=== PATIENT | male | born 1960 | race Caucasian/White ===

== ENCOUNTER 2018-08-24 16:45 | Inpatient (IN) ==
[2018-08-24] MEDS ORDERED: Sod Chloride 0.9% Inj 1,000 ML IV.SIG ONE (16:52)
[2018-08-24] MEDS ORDERED: Morphine Inj 4 MG/ML Vial IV.PUSH ONE (16:52)
--- NOTE | 2018-08-24 16:58 | ED ---
HPI General Chief Complaint: Abdominal Pain Stated Complaint: abd pain/evac Time Seen by Provider: 08/24/18 16:52 Source: patient and EMS Mode of arrival: EMS Limitations: no limitations History of Present Illness HPI narrative: 58-year-old male with PMH of non-Hodgkin's lymphoma, HIV, fibromyalgia presents the ED via EMS for evaluation of 2-day history of diffuse abdominal pain, nausea, vomiting and diarrhea. The patient endorses chills but has not measured a fever at home. He states that the abdominal pain is 6/10, diffuse, no alleviating or exacerbating factors reported. Onset was gradual around 2 AM 2 nights ago. Patient complains of bloated sensation and distention. He endorses loose stools x 2 days. The patient denies chest pain, palpitations, shortness of breath, dysuria, hematuria. He denies hematemesis, melena, hematochezia. He denies chronic alcohol use. He states that he last had a drink "about a week ago." He endorses history of laparoscopic appendectomy. Patient states his last CD4 count and viral load were tested a few months ago. He states that the viral load was undetectable but he does not do not know his CD4 count. He states "I have a terrible memory and I can't remember my medications either." Related Data Home Medications Medication Instructions Recorded Confirmed acyclovir 400 mg PO Q4H 08/24/18 08/24/18 dolutegravir-rilpivirine [Juluca] 1 tab PO DAILY 08/24/18 08/24/18 lamotrigine 100 mg PO BID 08/24/18 08/24/18 quetiapine 100 mg PO TID 08/24/18 08/24/18 tamsulosin 0.4 mg PO DAILY 08/24/18 08/24/18 zolpidem [Ambien] 08/24/18 Allergies Allergy/AdvReac Type Severity Reaction Status Date / Time No Known Allergies Allergy Verified 08/24/18 16:50 Review of Systems ROS: all other systems reviewed are negative [facility] Medical History Medical History Fibromyalgia (Acute) HIV positive (Acute) Non-Hodgkin lymphoma (Acute) Surgical History Surgical History H/O bone marrow transplant (Acute) Social History Social History Substance History: Active Abuse Smoking Status: Former smoker How Often Do You Have a Drink Containing Alcohol: 2 to 4 times a month Recent Travel in [facility] within the Last 8 Weeks: No Recent Out of Country Travel within the Last 8 Weeks: No Exam Narrative Exam Narrative: GENERAL: Well-nourished, well-developed, nontoxic-appearing white male in no acute distress. SKIN: Focused skin assessment pale, warm/dry. HEAD: Atraumatic. Normocephalic. EYES: Pupils equal and round. No scleral icterus. No injection or drainage. ENT: No nasal bleeding or discharge. Mucous membranes pink and moist. NECK: Trachea midline. No JVD. CARDIOVASCULAR: Regular rate and rhythm. No murmur appreciated. RESPIRATORY: No accessory muscle use. Clear to auscultation. Breath sounds equal bilaterally. GASTROINTESTINAL: Abdomen soft, mildly distended, diffusely tender, worse in left upper quadrant. Hypoactive bowel sounds. Hepatic and splenic margins not palpable. MUSCULOSKELETAL: No obvious deformities. No clubbing. No cyanosis. No edema. NEUROLOGICAL: Awake and alert. No obvious cranial nerve deficits. Motor grossly within normal limits. Normal speech. PSYCHIATRIC: Appropriate mood and affect; insight and judgment normal. Course Reevaluation(s) Reevaluation #1: Patient returned from the CT scanner moaning loudly. He states "my pain is back." Pain is reportedly in the epigastric region. Patient with voluntary guarding on reexamination. No tympany. Time: 18:23 Initial Documented Vital Signs Temperature 97.6 F 08/24/18 16:50 Pulse Rate 80 08/24/18 16:50 Respiratory Rate 16 08/24/18 16:50 Blood Pressure 141/67 H 08/24/18 16:50 Pulse Oximetry 92 L 08/24/18 16:50 Last Documented Vital Signs Temperature 97.6 F 08/24/18 16:50 Pulse Rate 85 08/24/18 18:42 Respiratory Rate 17 08/24/18 18:40 Blood Pressure 147/87 H 08/24/18 18:40 Pulse Oximetry 97 08/24/18 18:40 Medical Decision Making ALMA Attestation ALMA supervised visit: Yes Attestation: I, Dr. Frost, have reviewed the advance practice practitioner' s documentation and am in agreement, met with the patient face to face, made the diagnosis, and the medical decision making was done by me. *My assessment and Findings: The patient is a 58-year-old male who presents the emergency department with several days of abdominal pain and distention. The patient states they recently change his HIV medications, he states that that caused a disturbance in his bowel movements. However, the last several days he is only had watery type bowel movements, has not had a normal bowel movement in several days. He has been passing gas intermittently. He does noted that his abdomen is distended, painful, but denies any previous history of chronic ileus or small bowel obstruction. The patient has had a previous laparoscopic appendectomy, but denies any other abdominal surgeries. The patient is followed by infectious disease doctor for his HIV as well as a primary physician, however, cannot recall their name upon interview. The patient did have significant pain upon evaluation, was administered pain medications. CT the abdomen and pelvis reveals a partial small bowel obstruction. I had a discussion with the patient regarding NG tube placement, he was agreeable. The patient will be admitted to the on-call medical service. MDM Narrative Medical decision making narrative: 58-year-old male with PMH of HIV, upper scopic appendectomy resents the ED for evaluation of 3-day history of abdominal pain, bloating, watery stools. Patient is afebrile on presentation. On physical exam the abdomen is bloated, mildly distended, non-tympanic. IV was established. Patient was administered 4 mg morphine, 4 mg Zofran and 1 L normal saline. CBC shows white count 11.7, hemoglobin 13.6. CMP BUN 15, creatinine 1.07. LFTs normal. Lactic acid 1.7. While awaiting CT exam the patient started to moan. Reexamination reveals mild worsening of the distention and some voluntary guarding. He was administered a milligram of Dilaudid. CT abdomen pelvis reveals partial small bowel obstruction with transition point likely at the distal ileum in the right lower quadrant. Trace perihepatic fluid. No evidence for perforation or infarction. Dr. Frost spoke with the patient who is agreeable to an NG tube. This was placed. Plan to admit for observation. Patient is agreeable. I spoke with Dr.Mazal who agrees to accept the patient to the medicine service. Please see medicine notes for disposition. Medical Screen Exam Complete: Yes Emergency Medical Condition: Yes Differential Diagnosis Differential Diagnosis: Gastroenteritis versus cholecystitis versus pancreatitis versus ileus versus ileus versus bowel obstruction versus metabolic derangement versus anemia versus other Lab Data Result diagrams: 08/24/18 17:00 08/24/18 17:00 Lab Results 08/24/18 08/24/18 08/24/18 Range/Units 17:00 17:00 18:45 WBC 11.7 H (4.0-11.0) th/mm3 RBC 3.80 L (4.50-5.90) mil/mm3 Hgb 13.6 (13.0-17.0) gm/dL Hct 39.0 (39.0-51.0) % MCV 102.5 H (80.0-100.0) fL MCH 35.7 H (27.0-34.0) pg MCHC 34.9 (32.0-36.0) % RDW 13.4 (11.6-17.2) % Plt Count 196 (150-450) th/mm3 MPV 6.9 L (7.0-11.0) fL Neut % (Auto) 78.3 H (16.0-70.0) % Lymph % (Auto) 13.6 (9.0-44.0) % [place] % (Auto) 7.7 (0.0-8.0) % Eos % (Auto) 0.1 (0.0-4.0) % Baso % (Auto) 0.3 (0.0-2.0) % Neut # (Auto) 9.1 H (1.8-7.7) th/mm3 Lymph # (Auto) 1.6 (1.0-4.8) th/mm3 [place] # (Auto) 0.9 (0.0-0.9) th/mm3 Eos # (Auto) 0.0 (0.0-0.4) th/mm3 Baso # (Auto) 0.0 (0.0-0.2) th/mm3 WBC Differential . Differential Comment Auto diff final Sodium 140 (136-145) meq/L Potassium 4.1 (3.5-5.1) meq/L Chloride 106 (98-107) meq/L Carbon Dioxide 25.5 (21.0-32.0) meq/L Anion Gap 9 (5-15) meq/L BUN 15 (7-18) mg/dL Creatinine 1.07 (0.60-1.30) mg/dL Estimated GFR 70 L (>89) mL/min Random Glucose 134 H (74-106) mg/dL Lactic Acid 1.7 (0.4-2.0) mmol/L Calcium 8.5 (8.5-10.1) mg/dL Magnesium 2.2 (1.5-2.5) mg/dL Total Bilirubin 0.8 (0.2-1.0) mg/dL AST 22 (15-37) U/L ALT 32 (12-78) U/L Alkaline Phosphatase 39 L (45-117) U/L Total Protein 6.1 L (6.4-8.2) g/dL Albumin 3.9 (3.4-5.0) g/dL Lipase 215 (73-393) U/L Urine Color (Yellw/Straw) Urine Clarity (Clear) Urine pH (5.0-8.5) Ur Specific [place] (1.002-1.035) Urine Protein (Neg-Trace) mg/dL Urine Glucose (UA) (Negative) mg/dL Urine Ketones (Negative) mg/dL Urine Occult Blood (Negative) Urine Nitrate (Negative) Urine Bilirubin (Negative) Urine Urobilinogen (Less than 2) mg/dL Ur Leukocyte Esterase (Negative) Hyaline Casts (0-3) /lpf Urine Mucus (Occasional) /lpf Micro UA Comment Ur Microscopic Review Urine Culture Comments 08/24/18 Range/Units 20:30 WBC (4.0-11.0) th/mm3 RBC (4.50-5.90) mil/mm3 Hgb (13.0-17.0) gm/dL Hct (39.0-51.0) % MCV (80.0-100.0) fL MCH (27.0-34.0) pg MCHC (32.0-36.0) % RDW (11.6-17.2) % Plt Count (150-450) th/mm3 MPV (7.0-11.0) fL Neut % (Auto) (16.0-70.0) % Lymph % (Auto) (9.0-44.0) % [place] % (Auto) (0.0-8.0) % Eos % (Auto) (0.0-4.0) % Baso % (Auto) (0.0-2.0) % Neut # (Auto) (1.8-7.7) th/mm3 Lymph # (Auto) (1.0-4.8) th/mm3 [place] # (Auto) (0.0-0.9) th/mm3 Eos # (Auto) (0.0-0.4) th/mm3 Baso # (Auto) (0.0-0.2) th/mm3 WBC Differential Differential Comment Sodium (136-145) meq/L Potassium (3.5-5.1) meq/L Chloride (98-107) meq/L Carbon Dioxide (21.0-32.0) meq/L Anion Gap (5-15) meq/L BUN (7-18) mg/dL Creatinine (0.60-1.30) mg/dL Estimated GFR (>89) mL/min Random Glucose (74-106) mg/dL Lactic Acid (0.4-2.0) mmol/L Calcium (8.5-10.1) mg/dL Magnesium (1.5-2.5) mg/dL Total Bilirubin (0.2-1.0) mg/dL AST (15-37) U/L ALT (12-78) U/L Alkaline Phosphatase (45-117) U/L Total Protein (6.4-8.2) g/dL Albumin (3.4-5.0) g/dL Lipase (73-393) U/L Urine Color Yellow (Yellw/Straw) Urine Clarity Clear (Clear) Urine pH 6.0 (5.0-8.5) Ur Specific [place] 1.017 (1.002-1.035) Urine Protein Negative (Neg-Trace) mg/dL Urine Glucose (UA) Negative (Negative) mg/dL Urine Ketones Negative (Negative) mg/dL Urine Occult Blood Negative (Negative) Urine Nitrate Negative (Negative) Urine Bilirubin Negative (Negative) Urine Urobilinogen Less than 2 (Less than 2) mg/dL Ur Leukocyte Esterase Negative (Negative) Hyaline Casts 3 (0-3) /lpf Urine Mucus Few H (Occasional) /lpf Micro UA Comment Culture not ind Ur Microscopic Review Not Reportable Urine Culture Comments Culture not ind Imaging Data Radiologist's impression: Abdomen/Pelvis CT 08/24/18 16:52 CONCLUSION: 1. Findings consistent with partial small bowel obstruction with transition point likely at the distal ileum, in the right lower quadrant. Trace perihepatic ascites fluid. No evidence for bowel perforation or infarction at this time. 2. Additional ancillary findings, as above. Discharge Plan Discharge Disposition Patient Disposition: ED Admit(ED Internal Use Only) Discharge Order Discharge Orders: ED Use Only Admit Order (Routine); Ordered 08/24/18 Ordered By: Petra Hope Discharge Details Diagnosis: Partial obstruction of small intestine Physicians Team ED Provider: Alverto Frost ED Midlevel Provider: Petra Hope Primary Care Provider: UNKNOWN, Rxs /Orders / Referrals /Forms Prescriptions: No Action quetiapine 100 mg Tablet 100 mg PO TID RF: 0 acyclovir 200 mg Capsule 400 mg PO Q4H RF: 0 zolpidem [Ambien] 5 mg Tablet RF: 0 lamotrigine 100 mg Tablet 100 mg PO BID RF: 0 dolutegravir-rilpivirine [Juluca] 50-25 mg Tablet 1 tab PO DAILY RF: 0 tamsulosin 0.4 mg 0.4 mg PO DAILY RF: 0 Status ED Status: Pending Admission
[2018-08-24 17:31] LABS: Baso % (Auto) 0.3 % (0.0-2.0); Eos % (Auto) 0.1 % (0.0-4.0); Hemoglobin 13.6 gm/dL (13.0-17.0); Lymph # (Auto) 1.6 th/mm3 (1.0-4.8); Lymph % (Auto) 13.6 % (9.0-44.0); Mean Corpuscular HGB Conc 34.9 % (32.0-36.0); Mean Corpuscular Hemoglobin 35.7 pg (27.0-34.0); Mean Corpuscular Volume 102.5 fL (80.0-100.0); Mean Platelet Volume 6.9 fL (7.0-11.0); Mono # (Auto) 0.9 th/mm3 (0.0-0.9); Mono % (Auto) 7.7 % (0.0-8.0); Neut # (Auto) 9.1 th/mm3 (1.8-7.7); Neut % (Auto) 78.3 % (16.0-70.0); Platelet Count 196 th/mm3 (150-450); Red Cell Distribution Width 13.4 % (11.6-17.2); White Blood Count 11.7 th/mm3 (4.0-11.0)
[2018-08-24 17:55] LABS: Alkaline Phosphatase 39 U/L (45-117); Total Protein 6.1 g/dL (6.4-8.2)
[2018-08-24] MEDS ORDERED: HYDROmorphone PF Inj 2 MG/ML Vial IV.PUSH ONE (18:22)
[2018-08-24 20:22] LABS: Alanine Aminotransferase 32 U/L (12-78)
[2018-08-24 20:24] LABS: Albumin 3.9 g/dL (3.4-5.0); Anion Gap 9 meq/L (5-15); Aspartate Aminotransferase 22 U/L (15-37); Blood Urea Nitrogen 15 mg/dL (7-18); Calcium 8.5 mg/dL (8.5-10.1); Carbon Dioxide 25.5 meq/L (21.0-32.0); Chloride 106 meq/L (98-107); Glomerular Filtration Rate 70 mL/min (>89); Glucose,Random 134 mg/dL (74-106); Lipase 215 U/L (73-393); Magnesium 2.2 mg/dL (1.5-2.5); Potassium 4.1 meq/L (3.5-5.1); Sodium 140 meq/L (136-145)
--- NOTE | 2018-08-24 21:05 | CT ---
EXAM DATE: 08/24/2018 8:57 PM EST AGE/SEX: 58 years / Male INDICATIONS: Diarrhea, nausea, and vomiting. Distension. CLINICAL DATA: This is the patient's initial encounter. Patient reports that signs and symptoms have been present for 3 days and indicates a pain score of 5/10. MEDICAL/SURGICAL HISTORY: HIV. Non-hodgkins lymphoma. Appendectomy. Bone marrow transplant. ORAL CONTRAST: No oral contrast ingested. RADIATION DOSE: 9.39 CTDI (mGy) COMPARISON: No prior exams available for comparison. TECHNIQUE: Multiple contiguous axial images were obtained through the abdomen and pelvis following b olus infusion of 96 ml Omnipaque 350 (iohexol) nonionic water-soluble contrast as a single exam dos e. No oral contrast ingested. Using automated exposure control and adjustment of the mA and/or kV ac cording to patient size, radiation dose was kept as low as reasonably achievable to obtain optimal di agnostic quality images. DICOM format image data is available electronically for review and comparis on. FINDINGS: LOWER LUNGS: Minimal groundglass opacities and linear parenchymal opacities at the lung bases. LIVER: The liver has a homogeneous density without space-occupying lesion. There is no dilation of t he biliary tree. SPLEEN: Homogeneous density without enlargement. PANCREAS: Unremarkable without mass or calcification. KIDNEYS: Kidneys demonstrate symmetrical enhancement and are symmetrical in size without evidence fo r radiopaque renal calculi or hydronephrosis. 11 mm hypodense lesion in the inferior pole the left ki dney which is too small to fully characterize. ADRENAL GLANDS: Unremarkable. AORTA: Mild focal ectasia of the infrarenal aorta measuring up to 2.3 cm. BOWEL/MESENTERY: Prominent fluid-filled dilated loops of small bowel extending from the proximal jej unum to the distal ileum with transition point in the right lower quadrant. Small bowel loops measure up to 4.6 cm. There is no pneumatosis or free air. Colon is decompressed and unremarkable. There is very subtle perihepatic ascites fluid. No focal drainable fluid collections. Stomach is moderately di stended and fluid-filled although the duodenum and the duodenal jejunal junction is decompressed. ABDOMINAL WALL: Intact. Small fat-containing right inguinal hernia. RETROPERITONEUM: No evidence of adenopathy in the retrocrural, para-aortic, or deep pelvic regions. BLADDER: Contours are smooth. REPRODUCTIVE: No abnormal masses or calcifications seen. BONY STRUCTURES: Mild degenerative spondylosis of the lumbar spine. CONCLUSION: 1. Findings consistent with partial small bowel obstruction with transition point likely at the dist al ileum, in the right lower quadrant. Trace perihepatic ascites fluid. No evidence for bowel perfora tion or infarction at this time. 2. Additional ancillary findings, as above. Electronically signed by: Yoel Muñoz MD Board Certified Radiologist 08/24/2018 9:04 PM EST
[2018-08-24 21:09] LABS: Bilirubin,Urine Negative (Negative); Clarity,Urine Clear (Clear); Color,Urine Yellow (Yellw/Straw); Glucose,Urine (UA) Negative (Negative); Hyaline Casts,Urine 3 /lpf (0-3); Leukocyte Esterase,Urine Negative (Negative); Mucus,Urine Few /lpf (Occasional); Nitrite,Urine Negative (Negative); Specific Gravity,Urine 1.017 (1.002-1.035)
[2018-08-24 21:27] LABS: Amphetamine Screen,Urine Neg (Neg); Barbiturate Screen,Urine Neg (Neg); Cannabinoid Screen,Urine Pos (Neg); Cocaine Screen,Urine Neg (Neg)
[2018-08-24 21:30] LABS: Opiate Screen,Urine Pos (Neg)
[2018-08-24] MEDS ORDERED: Morphine Sulfate Inj 2 MG/ML Vial IV.PUSH PRN (21:48)
[2018-08-24] MEDS ORDERED: Acetaminophen 325 MG Tablet PO PRN (21:48)
--- NOTE | 2018-08-24 21:50 | P.HPIM ---
History of Present Illness Primary Care Physician: UNKNOWN History of Present Illness: This is a 66-year-old male with a PMH of HIV (CD4 Unknown), h/o NHL s/p BM Transplant, Fibromyalgia and h/o SBO who presented to the ER w/ complaints of abdominal pain and constipation. States symptoms have been intermittent for the last 3 months, previously having normal, daily BMs, now intermittent and associated w/ increased straining, alternating w/ diarrhea. Last normal BM yesterday. Denies fever, chills. On arrival, BP 141/ 67, HR 80, O2 sat 92% on RA, Afebrile. CBC essentially unremarkable except for WBC 11.7. Chemistry unremarkable. UA negative. Urine Drug Screen positive for Opiates and Marijuana. CT Abdomen/Pelvis partial small bowel obstruction with transition point likely at distal ileum. NGT to be placed in ER. Diagnosis (1) Partial small bowel obstruction: (2) HIV (human immunodeficiency virus infection): Review of Systems PAST FAMILY HISTORY: Reviewed. No h/o DM or CAD Review of Systems: all other systems reviewed are negative [facility] Medical History Medical History Fibromyalgia (Acute) HIV positive (Acute) Non-Hodgkin lymphoma (Acute) Surgical History Surgical History H/O bone marrow transplant (Acute) Social History Social History Substance History: Active Abuse Smoking Status: Former smoker How Often Do You Have a Drink Containing Alcohol: 2 to 4 times a month Recent Travel in [facility] within the Last 8 Weeks: No Recent Out of Country Travel within the Last 8 Weeks: No Substance Abuse Detail Marijuana: Substance Use Status: Active Immunization History Tetanus Immunization: Unsure Medications and Allergies Allergies Allergy/AdvReac Type Severity Reaction Status Date / Time No Known Allergies Allergy Verified 08/24/18 16:50 Home Medications Medication Instructions Recorded Confirmed Type acyclovir 400 mg PO Q4H 08/24/18 08/24/18 History dolutegravir-rilpivirine [Juluca] 1 tab PO DAILY 08/24/18 08/24/18 History lamotrigine 100 mg PO BID 08/24/18 08/24/18 History quetiapine 100 mg PO TID 08/24/18 08/24/18 History tamsulosin 0.4 mg PO DAILY 08/24/18 08/24/18 History zolpidem [Ambien] 08/24/18 History Active Medications: Active Medications Sodium Chloride (Ns Flush) 2 ml IV.FLUSH PRN PRN PRN Reason: FLUSH AFTER USING IV ACCESS Physical Exam Vital signs: Vital Signs 08/24/18 16:50 08/24/18 17:39 08/24/18 18:40 Temperature 97.6 F Pulse Rate 80 88 Respiratory Rate 16 16 17 Blood Pressure 141/67 H 147/87 H Pulse Oximetry 92 L 97 08/24/18 18:42 Temperature Pulse Rate 85 Respiratory Rate Blood Pressure Pulse Oximetry Intake & Output 08/24/18 08/24/18 08/25/18 06:59 18:59 06:59 Intake Total 1000 / 1000 Balance 1000 / 1000 Weight 77.111 kg Intake: IV 1000 / 1000 NS Inj 1,000 ML @ Wide Open IV. 1000 / 1000 SIG BOLUS ONE Rx#:[id number] Narrative: PE: GENERAL: Very pleasant middle-aged white male in no acute distress. SKIN: Focused skin assessment warm and dry. HEENT: PERRLA, EOMI. No scleral icterus or conjunctival pallor. No lid lag or facial droop. CARDIOVASCULAR: Regular rate and rhythm. No obvious murmurs to auscultation. No chest tenderness to palpation. RESPIRATORY: No obvious rhonchi or wheezing. Clear to auscultation. Breath sounds equal bilaterally. GASTROINTESTINAL: Abdomen soft, mild generalized tenderness to palpation, nondistended. BS normal. MUSCULOSKELETAL: Extremities without clubbing, cyanosis, or edema. No obvious deformities. NEUROLOGICAL: Awake, alert and oriented x4. No focal neurologic deficits. Moving both upper and lower extremities spontaneously. PSYCHIATRIC: Appropriate mood and affect. Insight and judgment normal. Results Labs CBC & Chem 7: 08/24/18 17:00 08/24/18 17:00 Imaging Impressions Abdomen/Pelvis CT 08/24/18 16:52 CONCLUSION: 1. Findings consistent with partial small bowel obstruction with transition point likely at the distal ileum, in the right lower quadrant. Trace perihepatic ascites fluid. No evidence for bowel perforation or infarction at this time. 2. Additional ancillary findings, as above. Caprini VTE Risk Assessment Caprini VTE Risk Assessment: No/Low Risk (score <= 1) Caprini Risk Assessment Model: Point Value = 1 Point Value = 2 Point Value = 3 Point Value = 5 Age 41-60 Minor surgery BMI > 25 kg/m2 Swollen legs Varicose veins or History of unexplained or recurrent spontaneous Oral contraceptives or hormone replacement Sepsis (< 1 month) Serious lung disease, including pneumonia (< 1 month) Abnormal pulmonary function Acute myocardial infarction Congestive heart failure (< 1 month) History of inflammatory bowel disease Medical patient at bed rest Age 61-74 Arthroscopic surgery Major open surgery (> 45 min) Laparoscopic surgery (> 45 min) Malignancy Confined to bed (> 72 hours) Immobilizing plaster cast Central venous access Age >= 75 History of VTE Family history of VTE Factor V Leiden Prothrombin [id number] Lupus anticoagulant Anticardiolipin antibodies Elevated serum homocysteine Heparin-induced thrombocytopenia Other congenital or acquired thrombophilia Stroke (< 1 month) Elective arthroplasty Hip, pelvis, or leg fracture Acute spinal cord injury (< 1 month) Prophylaxis Regimen: Total Risk Factor Score Risk Level Prophylaxis Regimen 0-1 Low Early ambulation 2 Moderate Order ONE of the following: *Sequential Compression Device (SCD) *Heparin 5000 units SQ BID 3-4 Higher Order ONE of the following medications: *Heparin 5000 units SQ TID *Enoxaparin/Lovenox 40 mg SQ daily (WT < 150 kg, CrCl > 30 mL/min) *Enoxaparin/Lovenox 30 mg SQ daily (WT < 150 kg, CrCl > 10-29 mL/min) *Enoxaparin/Lovenox 30 mg SQ BID (WT < 150 kg, CrCl > 30 mL/min) AND/OR *Sequential Compression Device (SCD) 5 or more Highest Order ONE of the following medications: *Heparin 5000 units SQ TID (Preferred with Epidurals) *Enoxaparin/Lovenox 40 mg SQ daily (WT < 150 kg, CrCl > 30 mL/min) *Enoxaparin/Lovenox 30 mg SQ daily (WT < 150 kg, CrCl > 10-29 mL/min) *Enoxaparin/Lovenox 30 mg SQ BID (WT < 150 kg, CrCl > 30 mL/min) AND *Sequential Compression Device (SCD) Assessment and Plan (1) Partial small bowel obstruction: Code(s): K56.600 - Partial intestinal obstruction, unspecified as to cause Status: Acute (2) HIV (human immunodeficiency virus infection): Code(s): B20 - Human immunodeficiency virus [HIV] disease Status: Acute Plan A/P: 1. Partial SBO: reports h/o SBO in the past, last BM yesterday, CT Abd/Pelvis w/ partial SBO transition point distal ileum, NGT to be placed in ER, NPO, IVF, Morphine prn, Consult Gen Sx for further eval, no emergent intervention needed at this time. 2. HIV: CD4 unknown, reports last viral load 3 months ago was "low", resume home medications once obstruction resolves and able to take PO. 3. DVT Prophylaxis: SCD/teds 4. Social work for d/c planning as needed 5. Case discussed w/ ER physician at length, labs/records/imaging reviewed by me
[2018-08-24] MEDS: Sod Chloride 0.9% Inj 1,000 ML IV.CONT SCH (23:25)
[2018-08-25] MEDS: Morphine Inj 4 MG/ML Vial IV.PUSH PRN ×6 (00:04→22:34)
[2018-08-25 07:51] LABS: Baso % (Auto) 0.4 % (0.0-2.0); Eos # (Auto) 0.1 th/mm3 (0.0-0.4); Eos % (Auto) 0.8 % (0.0-4.0); Hemoglobin 12.6 gm/dL (13.0-17.0); Lymph # (Auto) 2.5 th/mm3 (1.0-4.8); Lymph % (Auto) 27.9 % (9.0-44.0); Mean Corpuscular Hemoglobin 35.7 pg (27.0-34.0); Mean Platelet Volume 6.6 fL (7.0-11.0); Mono # (Auto) 1.1 th/mm3 (0.0-0.9); Mono % (Auto) 12.1 % (0.0-8.0); Neut # (Auto) 5.3 th/mm3 (1.8-7.7); Neut % (Auto) 58.8 % (16.0-70.0); Platelet Count 208 th/mm3 (150-450); Red Blood Count 3.53 mil/mm3 (4.50-5.90); Red Cell Distribution Width 13.5 % (11.6-17.2)
[2018-08-25 08:16] LABS: Alanine Aminotransferase 27 U/L (12-78); Albumin 3.3 g/dL (3.4-5.0); Alkaline Phosphatase 47 U/L (45-117); Anion Gap 5 meq/L (5-15); Aspartate Aminotransferase 12 U/L (15-37); Blood Urea Nitrogen 14 mg/dL (7-18); Carbon Dioxide 28.7 meq/L (21.0-32.0); Chloride 109 meq/L (98-107); Glomerular Filtration Rate 68 mL/min (>89); Glucose,Random 131 mg/dL (74-106); Potassium 3.9 meq/L (3.5-5.1); Sodium 143 meq/L (136-145); Total Protein 7.1 g/dL (6.4-8.2)
[2018-08-25] MEDS: Sod Chloride 0.9% Inj 1,000 ML IV.CONT SCH ×2 (09:18→18:20)
--- NOTE | 2018-08-25 15:00 | P.PNIM ---
Subjective Interval history: Follow-up SBO, HIV, non-Hodgkin's lymphoma status post bone marrow transplant. Patient seen and examined laying in bed, NG tube in place, complain of discomfort in the abdomen, associated with some nausea. Patient denies any vomiting today however yesterday he said he had some vomiting. Patient stated his last bowel movement was . Patient denies any fever or chills. Patient denies any chest pain or shortness of breath, denies any headache or dizziness. Discussed with nurse plan of care Physical Exam Vital signs: Vital Signs 08/24/18 16:50 08/24/18 17:39 08/24/18 18:40 Temperature 97.6 F Pulse Rate 80 88 Respiratory Rate 16 16 17 Blood Pressure 141/67 H 147/87 H Pulse Oximetry 92 L 97 08/24/18 18:42 08/24/18 23:25 08/25/18 00:04 Temperature 97.3 F L Pulse Rate 85 87 87 Respiratory Rate 17 18 Blood Pressure 107/62 126/60 Pulse Oximetry 95 97 08/25/18 02:14 08/25/18 03:15 08/25/18 08:00 Temperature 98.5 F 98.4 F Pulse Rate 78 72 Respiratory Rate 16 17 18 Blood Pressure 110/65 110/70 Pulse Oximetry 96 90 L 08/25/18 09:16 08/25/18 12:00 08/25/18 14:21 Temperature 98.1 F Pulse Rate 70 Respiratory Rate 18 18 18 Blood Pressure 110/63 Pulse Oximetry 91 L Intake & Output 08/24/18 08/25/18 08/25/18 18:59 06:59 18:59 Intake Total 1000 / 1000 1000 / 1000 Output Total 1375 / 1375 Balance 1000 / 1000 -1375 / -1375 1000 / 1000 Weight 77.111 kg 74.2 kg Intake: IV 1000 / 1000 1000 / 1000 NS Inj 1,000 ML @ 100 mls/hr IV 1000 / 1000 .CONT .Q10H [facility] Rx#:[id number] NS Inj 1,000 ML @ Wide Open IV. 1000 / 1000 SIG BOLUS ONE Rx#:[id number] Output: Urine 375 / 375 Gastric Drainage 1000 / 1000 Right Nare Nasogastric Tube 1000 / 1000 Other: Date of Last Bowel Movement 08/24/18 Narrative: GENERAL: Well-developed, well-nourished, pleasant middle-aged male, lying in bed in no acute distress. SKIN: Focused skin assessment warm and dry. HEENT: P No scleral icterus or conjunctival pallor. No lid lag or facial droop. CARDIOVASCULAR: Regular rate and rhythm. No obvious murmurs to auscultation. No chest tenderness to palpation. RESPIRATORY: No rhonchi or wheezing. Clear to auscultation. Breath sounds equal bilaterally. GASTROINTESTINAL: Abdomen soft, mild generalized tenderness to palpation, nondistended. BS normal. NG tube in place MUSCULOSKELETAL: Extremities without clubbing, cyanosis, or edema. No obvious deformities. NEUROLOGICAL: Awake, alert and oriented x4. No focal neurologic deficits. Generalized weakness, moving all 4 extremities. Speech normal . PSYCHIATRIC: Appropriate mood and affect. Insight and judgment normal. Results Labs CBC & Chem 7: 08/25/18 07:04 08/25/18 07:04 Imaging Imaging: Impressions Abdomen/Pelvis CT 08/24/18 16:52 CONCLUSION: 1. Findings consistent with partial small bowel obstruction with transition point likely at the distal ileum, in the right lower quadrant. Trace perihepatic ascites fluid. No evidence for bowel perforation or infarction at this time. 2. Additional ancillary findings, as above. Assessment and Plan (1) Partial small bowel obstruction: Code(s): K56.600 - Partial intestinal obstruction, unspecified as to cause Status: Acute (2) HIV (human immunodeficiency virus infection): Code(s): B20 - Human immunodeficiency virus [HIV] disease Status: Acute Plan This is a 66-year-old male with a PMH of HIV (CD4 Unknown), h/o NHL s/p BM Transplant, Fibromyalgia and h/o SBO who presented to the ER w/ complaints of abdominal pain and constipation. Partial SBO reports h/o SBO in the past, last BM on -CT Abd/Pelvis : w/ partial SBO transition point distal ileum -Continue NG tube -NPO, may have ice chips -Continue IV fluid -PRN pain medication, with bowel regimen morphine prn -General surgery consulted: Appreciate recommendations -Continue stool stool softeners and laxative. -Give Dulcolax suppository today -Monitor electrolytes, BMP and CBC HIV - CD4 unknown -reports last viral load 3 months ago was "low" -resume home medications once obstruction resolves and able to take PO. Non-Hodgkin lymphoma Status post bone marrow Transplant -In remission times 6 years -Follow-up with oncology as an outpatient DVT Prophylaxis: SCD/teds Code Status: Full code Discussed Condition With: Patient and nurse Discharge Planning: To be determined. Geodetic Engineer consult for discharge planning as needed Progress Note: Quality VTE Deep Vein Thrombosis/Pulmonary Embolism Present on Admission: No
--- NOTE | 2018-08-25 15:46 | P.CONGS ---
[facility] Consult Note Consult date: 08/25/18 Reason for consult: other (Small bowel obstruction seen on CT scan) Narrative: CONSULTATION NOTE FOR SURGICAL ATTENDING, DR. PETE RAMSEY Patient recently admitted to the hospital he began to experience some abdominal pain and nausea and vomiting. He had some diarrhea as well and then he came to the emergency room a CT scan was done showing possible small bowel obstruction he does have a history of lymphoma in the past he has had a laparoscopic appendectomy in the past as well. His pain is better after having the NG tube placed. He does have a history of HIV he underwent chemotherapy for treatment of his lymphoma as well PMFSH - History History Provided By: Patient - Medical History Medical History: Medical History (Last Updated 08/25/18 @ 15:41 by Pete Ramsey MD) HIV positive (Acute) Fibromyalgia Non-Hodgkin lymphoma - Surgical History Surgical History: Surgical History (Last Updated 08/25/18 @ 15:42 by Pete Ramsey MD) Hx of appendectomy H/O bone marrow transplant - Social History I have reviewed the patient's Social History: Yes - Tobacco History Second Hand Smoke Exposure: No Smoking Status: Former smoker - Alcohol History How Often Do You Have a Drink Containing Alcohol: 2 to 4 times a month - Substance Use History Substance History: Active Abuse - Substance Use Type Marijuana Status: Active Reason for Use: Sleep - Travel History Recent Travel in the [place] Within the Last 8 Weeks: No Recent Travel Out of the Country Within the Last 8 Weeks: No - Immunization History Tetanus Immunization: >5 Years Hx Influenza Vaccine This Season: Yes Medications and Allergies Active Medications: Active Medications Acetaminophen (Tylenol) 650 mg PO Q4H PRN PRN Reason: Temp > 100.4 Bisacodyl (Dulcolax Supp) 10 mg RECTAL DAILY PRN PRN Reason: SEVERE CONSITIPATION Sodium Chloride (Ns Inj) 1,000 mls @ 100 mls/hr IV.CONT .Q10H [facility] Last Admin: 08/25/18 09:18 Dose: 100 mls/hr Morphine Sulfate (Morphine Inj) 2 mg IV.PUSH Q4H PRN PRN Reason: PAIN SCALE 6 TO 10 Last Admin: 08/25/18 14:19 Dose: 2 mg Ondansetron HCl (Zofran Inj) 4 mg IV.PUSH Q6H PRN PRN Reason: NAUSEA OR VOMITING Sodium Chloride (Ns Flush) 2 ml IV.FLUSH BID [facility] Last Admin: 08/25/18 09:17 Dose: Not Given Sodium Chloride (Ns Flush) 2 ml IV.FLUSH PRN PRN PRN Reason: FLUSH AFTER USING IV ACCESS Allergies Allergy/AdvReac Type Severity Reaction Status Date / Time No Known Allergies Allergy Verified 08/24/18 16:50 Home Medications Medication Instructions Recorded Confirmed Type acyclovir 400 mg PO Q4H 08/24/18 08/24/18 History dolutegravir-rilpivirine [Juluca] 1 tab PO DAILY 08/24/18 08/24/18 History lamotrigine 100 mg PO BID 08/24/18 08/24/18 History quetiapine 100 mg PO TID 08/24/18 08/24/18 History tamsulosin 0.4 mg PO DAILY 08/24/18 08/24/18 History zolpidem [Ambien] 08/24/18 History Exam Vital signs: Vital Signs 08/24/18 16:50 08/24/18 17:39 08/24/18 18:40 Temperature 97.6 F Pulse Rate 80 88 Respiratory Rate 16 16 17 Blood Pressure 141/67 H 147/87 H Pulse Oximetry 92 L 97 08/24/18 18:42 08/24/18 23:25 08/25/18 00:04 Temperature 97.3 F L Pulse Rate 85 87 87 Respiratory Rate 17 18 Blood Pressure 107/62 126/60 Pulse Oximetry 95 97 08/25/18 02:14 08/25/18 03:15 08/25/18 08:00 Temperature 98.5 F 98.4 F Pulse Rate 78 72 Respiratory Rate 16 17 18 Blood Pressure 110/65 110/70 Pulse Oximetry 96 90 L 08/25/18 09:16 08/25/18 12:00 08/25/18 14:21 Temperature 98.1 F Pulse Rate 70 Respiratory Rate 18 18 18 Blood Pressure 110/63 Pulse Oximetry 91 L Intake & Output 08/24/18 08/25/18 08/25/18 18:59 06:59 18:59 Intake Total 1000 / 1000 1000 / 1000 Output Total 1375 / 1375 Balance 1000 / 1000 -1375 / -1375 1000 / 1000 Weight 77.111 kg 74.2 kg Intake: IV 1000 / 1000 1000 / 1000 NS Inj 1,000 ML @ 100 mls/hr IV 1000 / 1000 .CONT .Q10H [facility] Rx#:[id number] NS Inj 1,000 ML @ Wide Open IV. 1000 / 1000 SIG BOLUS ONE Rx#:[id number] Output: Urine 375 / 375 Gastric Drainage 1000 / 1000 Right Nare Nasogastric Tube 1000 / 1000 Other: Date of Last Bowel Movement 08/24/18 Narrative: Patient alert oriented Laying in bed and appears comfortable He has an NG tube in Neck is supple without JVD Chest is clear Heart regular rate Abdomen soft with mild soreness left lower quadrant no rebound or guarding mild soreness in the left upper quadrant as well Extremities moves all extremities well no clubbing cyanosis or edema Neurologic alert oriented cooperative Results - Labs 08/25/18 07:04 08/25/18 07:04 - Imaging Imaging: ITS Impressions Abdomen/Pelvis CT 08/24/18 16:52 CONCLUSION: 1. Findings consistent with partial small bowel obstruction with transition point likely at the distal ileum, in the right lower quadrant. Trace perihepatic ascites fluid. No evidence for bowel perforation or infarction at this time. 2. Additional ancillary findings, as above. Abdominal x-ray: report reviewed, image reviewed CT scan - abdomen: report reviewed, image reviewed CT scan - pelvis: report reviewed, image reviewed Assessment and Plan - Assessment (1) HIV (human immunodeficiency virus infection) Code(s): B20 - Human immunodeficiency virus [HIV] disease Status: Acute (2) History of laparoscopic appendectomy Code(s): Z90.49 - Acquired absence of other specified parts of digestive tract Status: Acute (3) History of lymphoma Code(s): Z85.79 - Personal history of other malignant neoplasms of lymphoid, hematopoietic and related tissues Status: Acute (4) Partial obstruction of small intestine Code(s): K56.600 - Partial intestinal obstruction, unspecified as to cause Status: Acute - Plan At this time continue NG tube decompression We will repeat exam in the morning with repeat KUB May need a small bowel follow-through depending on clinical condition - Attending Attestation CONSULTATION NOTE FOR SURGICAL ATTENDING, DR. PETE RAMSEY I attest that I had a [id number] encounter with the patient on the same day, and personally performed and documented my assessment and findings in the medical record. The following services were provided during this hospital visit: Chart data review, vital sign assessments/reviewing monitor data Review of consultations notes if present. Medication orders/review and/or management Ordering and/or reviewing lab tests Ordering and/or interpreting/reviewing x-rays and/or diagnostic studies Care of the patient and discussion of the patient with the care team Documentation time To help prompt me to consider important information that might be impacting today's encounter and assessment, Information from prior notes written by myself or my colleagues may have been "brought forward/copy and pasted" into today's note.
[2018-08-25] MEDS: Bisacodyl 10 MG Supp RECTAL PRN (18:16)
[2018-08-26] MEDS: Morphine Inj 4 MG/ML Vial IV.PUSH PRN ×4 (02:43→17:14)
[2018-08-26] MEDS: Sod Chloride 0.9% Inj 1,000 ML IV.CONT SCH ×3 (04:51→13:08)
[2018-08-26 05:50] LABS: Baso % (Auto) 0.2 % (0.0-2.0); Eos # (Auto) 0.1 th/mm3 (0.0-0.4); Eos % (Auto) 0.7 % (0.0-4.0); Hematocrit 35.8 % (39.0-51.0); Hemoglobin 12.2 gm/dL (13.0-17.0); Lymph # (Auto) 2.5 th/mm3 (1.0-4.8); Lymph % (Auto) 26.3 % (9.0-44.0); Mean Corpuscular HGB Conc 34.2 % (32.0-36.0); Mean Corpuscular Hemoglobin 35.2 pg (27.0-34.0); Mean Corpuscular Volume 102.9 fL (80.0-100.0); Mean Platelet Volume 6.8 fL (7.0-11.0); Mono # (Auto) 0.9 th/mm3 (0.0-0.9); Mono % (Auto) 9.4 % (0.0-8.0); Neut # (Auto) 5.9 th/mm3 (1.8-7.7); Neut % (Auto) 63.4 % (16.0-70.0); Platelet Count 196 th/mm3 (150-450); Red Blood Count 3.48 mil/mm3 (4.50-5.90); Red Cell Distribution Width 12.7 % (11.6-17.2); White Blood Count 9.4 th/mm3 (4.0-11.0)
[2018-08-26 06:02] LABS: Anion Gap 6 meq/L (5-15); Blood Urea Nitrogen 11 mg/dL (7-18); Calcium 8.1 mg/dL (8.5-10.1); Carbon Dioxide 28.4 meq/L (21.0-32.0); Chloride 108 meq/L (98-107); Glomerular Filtration Rate Greater Than 89 mL/min (>89); Glucose,Random 102 mg/dL (74-106); Potassium 3.6 meq/L (3.5-5.1); Sodium 142 meq/L (136-145)
[2018-08-26] MEDS: Bisacodyl 10 MG Supp RECTAL PRN (07:23)
--- NOTE | 2018-08-26 09:29 | P.PNGS ---
Subjective Patient reports: feels better, still having pain, pain is less, tolerating liquids well, bowel movement Physical Exam Vital signs: Vital Signs 08/25/18 12:00 08/25/18 14:21 08/25/18 15:54 Temperature 98.1 F 98.9 F Pulse Rate 70 65 Respiratory Rate 18 18 18 Blood Pressure 110/63 137/71 Pulse Oximetry 91 L 93 L 08/25/18 18:18 08/25/18 19:14 08/25/18 23:17 Temperature 98.4 F 98.1 F Pulse Rate 68 70 Respiratory Rate 16 18 18 Blood Pressure 119/65 110/59 L Pulse Oximetry 94 L 95 08/26/18 07:24 Temperature Pulse Rate Respiratory Rate 18 Blood Pressure Pulse Oximetry Intake & Output 08/25/18 08/26/18 08/26/18 18:59 06:59 18:59 Intake Total 1000 / 1000 1000 / 1000 Output Total 900 / 900 1800 / 1800 Balance 100 / 100 -800 / -800 Weight 82.7 kg Intake: IV 1000 / 1000 1000 / 1000 NS Inj 1,000 ML @ 100 mls/hr IV 1000 / 1000 1000 / 1000 .CONT .Q10H [facility] Rx#:[id number] Output: Gastric Drainage 900 / 900 1800 / 1800 Right Nare Nasogastric Tube 900 / 900 1800 / 1800 Other: # Voids 4 Date of Last Bowel Movement 08/24/18 08/24/18 08/23/18 - Routine Abdominal Exam Present: soft Comments: overall abdomen soft, minimal tenderness Results - Labs 08/26/18 05:07 08/26/18 05:07 Laboratory Results - last 24 hr 08/25/18 08/26/18 08/26/18 07:04 05:07 05:07 WBC 9.4 RBC 3.48 L Hgb 12.2 L Hct 35.8 L MCV 102.9 H MCH 35.2 H MCHC 34.2 RDW 12.7 Plt Count 196 MPV 6.8 L Neut % (Auto) 63.4 Lymph % (Auto) 26.3 Camp % (Auto) 9.4 H Eos % (Auto) 0.7 Baso % (Auto) 0.2 Neut # (Auto) 5.9 Lymph # (Auto) 2.5 Camp # (Auto) 0.9 Eos # (Auto) 0.1 Baso # (Auto) 0.0 WBC Differential . Differential Comment Auto diff final Sodium 142 Potassium 3.6 Chloride 108 H Carbon Dioxide 28.4 Anion Gap 6 BUN 11 Creatinine 0.85 Estimated GFR Greater than 89 Random Glucose 102 Calcium 8.1 L Procalcitonin 0.16 H - Imaging Imaging: ITS Impressions Abdomen/Pelvis CT 08/24/18 16:52 CONCLUSION: 1. Findings consistent with partial small bowel obstruction with transition point likely at the distal ileum, in the right lower quadrant. Trace perihepatic ascites fluid. No evidence for bowel perforation or infarction at this time. 2. Additional ancillary findings, as above. Assessment and Plan - Assessment (1) HIV (human immunodeficiency virus infection) Code(s): B20 - Human immunodeficiency virus [HIV] disease Status: Acute (2) History of laparoscopic appendectomy Code(s): Z90.49 - Acquired absence of other specified parts of digestive tract Status: Acute (3) History of lymphoma Code(s): Z85.79 - Personal history of other malignant neoplasms of lymphoid, hematopoietic and related tissues Status: Acute (4) Partial obstruction of small intestine Code(s): K56.600 - Partial intestinal obstruction, unspecified as to cause Status: Acute - Plan will check SBFT today will DC NG if contrast gets to colon if not may need laparoscopy monday or monday.
--- NOTE | 2018-08-26 10:32 | XR ---
EXAM DATE: 08/26/2018 10:21 AM EST AGE/SEX: 58 years / Male INDICATIONS: Abdominal pain. CLINICAL DATA: This is the patient's initial encounter. Patient reports that signs and symptoms have been present for 3 days and indicates a pain score of 5/10. MEDICAL/SURGICAL HISTORY: None. None. COMPARISON: [facility] [place], CT ABDOMEN & PELVIS W CONTRAST, 08/24/2018. . FINDINGS: There has been interval decompression of the small bowel loops. Scattered air identified within nond ilated small bowel loops as well as the colon is present. Gastric tube identified within the region o f the stomach with the proximal port below the left hemidiaphragm. No abnormal masses, calcifications , or organomegaly is seen. The osseous structures are unremarkable. CONCLUSION: Interval decompression of small bowel loops with resolution of small bowel dilation. Electronically signed by: Rupali Hatfield MD Board Certified Radiologist 08/26/2018 10:31 AM LUCY Arana
[2018-08-26] MEDS ORDERED: Diatrizoate Meglum/Diatrizoate Sod Liq 120 ML Bottle (for RAD diag) NG/OG ONE (11:58)
--- NOTE | 2018-08-26 13:01 | P.PNIM ---
Subjective Interval history: Follow-up SBO, HIV, non-Hodgkin's lymphoma status post bone marrow transplant. Pain, laying in bed, NG tube in place in the right nares, patient stated feeling better. However still having some abdominal discomfort. Patient denies any nausea or vomiting. Patient stated had 2 small bowel movements today. Patient denies any chest pain or shortness of breath, denies any fever or chills. Next reported patient just came back from bowel series Physical Exam Vital signs: Vital Signs 08/25/18 14:21 08/25/18 15:54 08/25/18 18:18 Temperature 98.9 F Pulse Rate 65 Respiratory Rate 18 18 16 Blood Pressure 137/71 Pulse Oximetry 93 L 08/25/18 19:14 08/25/18 23:17 08/26/18 07:24 Temperature 98.4 F 98.1 F Pulse Rate 68 70 Respiratory Rate 18 18 18 Blood Pressure 119/65 110/59 L Pulse Oximetry 94 L 95 08/26/18 08:00 Temperature 97 F L Pulse Rate 66 Respiratory Rate 18 Blood Pressure 116/60 Pulse Oximetry 92 L Intake & Output 08/25/18 08/26/18 08/26/18 18:59 06:59 18:59 Intake Total 1000 / 1000 1000 / 1000 1000 / 1000 Output Total 900 / 900 1800 / 1800 Balance 100 / 100 -800 / -800 1000 / 1000 Weight 82.7 kg Intake: IV 1000 / 1000 1000 / 1000 1000 / 1000 NS Inj 1,000 ML @ 100 mls/hr IV 1000 / 1000 1000 / 1000 1000 / 1000 .CONT .Q10H [facility] Rx#:[id number] Output: Gastric Drainage 900 / 900 1800 / 1800 Right Nare Nasogastric Tube 900 / 900 1800 / 1800 Other: # Voids 4 Date of Last Bowel Movement 08/24/18 08/24/18 08/23/18 Narrative: GENERAL: Well-developed, well-nourished, pleasant middle-aged male, lying in bed in no acute distress. SKIN: Focused skin assessment warm and dry. HEENT: P No scleral icterus or conjunctival pallor. No lid lag or facial droop. CARDIOVASCULAR: Regular rate and rhythm. No obvious murmurs to auscultation. No chest tenderness to palpation. RESPIRATORY: No rhonchi or wheezing. Clear to auscultation. Breath sounds equal bilaterally. GASTROINTESTINAL: Abdomen soft, mild generalized tenderness to palpation, nondistended. BS normal. NG tube in place on right nares MUSCULOSKELETAL: Extremities without clubbing, cyanosis, or edema. No obvious deformities. NEUROLOGICAL: Awake, alert and oriented x4. No focal neurologic deficits. Generalized weakness, moving all 4 extremities. Speech normal . PSYCHIATRIC: Appropriate mood and affect. Insight and judgment normal. Results Labs CBC & Chem 7: 08/26/18 05:07 08/26/18 05:07 Imaging Imaging: Impressions Abdomen X-Ray 08/26/18 00:00 CONCLUSION: Interval decompression of small bowel loops with resolution of small bowel dilation. Assessment and Plan (1) HIV (human immunodeficiency virus infection): Code(s): B20 - Human immunodeficiency virus [HIV] disease Status: Acute (2) History of laparoscopic appendectomy: Code(s): Z90.49 - Acquired absence of other specified parts of digestive tract Status: Acute (3) History of lymphoma: Code(s): Z85.79 - Personal history of other malignant neoplasms of lymphoid, hematopoietic and related tissues Status: Acute (4) Partial obstruction of small intestine: Code(s): K56.600 - Partial intestinal obstruction, unspecified as to cause Status: Acute Plan This is a 66-year-old male with a PMH of HIV (CD4 Unknown), h/o NHL s/p BM Transplant, Fibromyalgia and h/o SBO who presented to the ER w/ complaints of abdominal pain and constipation. Partial SBO reports h/o SBO in the past, last BM on -CT Abd/Pelvis : w/ partial SBO transition point distal ileum -Continue NG tube -NPO, may have ice chips -Continue IV fluid -PRN pain medication, with bowel regimen morphine prn -General surgery consulted, Appreciate recom: SBFT today, will DC NG if contrast gets to colon, if not may need laparoscopy monday or monday. -Continue stool stool softeners and laxative. -Give Dulcolax suppository today -Monitor electrolytes, BMP and CBC -Small bowel series today -KUB 08/26/2018: Interval decompression of small bowel loops with resolution of small bowel dilation. HIV - CD4 unknown -reports last viral load 3 months ago was "low" -resume home medications once obstruction resolves and able to take PO. Non-Hodgkin lymphoma Status post bone marrow Transplant -In remission times 6 years -Follow-up with oncology as an outpatient DVT Prophylaxis: SCD/teds Discharge Planning: To be determined. Combine Operator consult for discharge planning as needed Progress Note: Quality VTE Deep Vein Thrombosis/Pulmonary Embolism Present on Admission: No _ (1) HIV (human immunodeficiency virus infection) Qualifiers: HIV symptom status:
--- NOTE | 2018-08-26 14:45 | FL ---
EXAM DATE: 08/26/2018 2:28 PM EST AGE/SEX: 58 years / Male INDICATIONS: Rule out possible obstruction. CLINICAL DATA: This is the patient's subsequent encounter. Patient reports that signs and symptoms h ave been present for 3 days and indicates a pain score of 0/10. MEDICAL/SURGICAL HISTORY: None. None. COMPARISON: . FLUORO TIME: 3 sec. IMAGE COUNT: 4 RADIATION DOSE: 0 DAP CONTRAST: Gastrografin FINDINGS: Nitroglycerin Nitrator Operator Batch image shows feeding tube projecting over the expected location of the gastric lumen. 15 minute image shows opacification of the normal proximal jejunum. Small bowel transit time is normal at 120 minutes. Fluoroscopy of the abdomen and terminal ileum dem onstrates no abnormality. CONCLUSION: Normal small bowel series without obstruction. Electronically signed by: Daren Krueger MD Board Certified Radiologist 08/26/2018 2:43 PM EST
[2018-08-27] MEDS: Sod Chloride 0.9% Inj 1,000 ML IV.CONT SCH (05:22)
--- NOTE | 2018-08-27 08:03 | P.PNGS ---
Subjective Patient reports: feels better Interval history: DAILY PROGRESS NOTE FOR SURGICAL ATTENDING, DR. PETE HUDSON Feeling much better Hungry Would like to eat Physical Exam Vital signs: Vital Signs 08/26/18 12:00 08/26/18 13:39 08/26/18 16:00 Temperature 98 F 97.2 F L Pulse Rate 61 60 Respiratory Rate 18 16 18 Blood Pressure 126/64 154/71 H Pulse Oximetry 95 96 08/26/18 17:16 08/26/18 21:07 08/27/18 00:02 Temperature 98.4 F 97.8 F Pulse Rate 59 L 63 Respiratory Rate 18 18 18 Blood Pressure 130/85 130/71 Pulse Oximetry 95 95 08/27/18 04:02 Temperature 98.4 F Pulse Rate 57 L Respiratory Rate 19 Blood Pressure 126/69 Pulse Oximetry 96 Intake & Output 08/26/18 08/27/18 08/27/18 18:59 06:59 18:59 Intake Total 1000 / 1000 1720 / 1720 Balance 1000 / 1000 1720 / 1720 Intake: IV 1000 / 1000 1000 / 1000 NS Inj 1,000 ML @ 100 mls/hr IV 1000 / 1000 1000 / 1000 .CONT .Q10H [facility] Rx#:[id number] Oral 720 / 720 Other: # Voids 5 3 Date of Last Bowel Movement 08/23/18 08/26/18 # Bowel Movements 1 1 Narrative: Alert and awake Abd: soft; non tender non distended Results - Labs 08/26/18 05:07 08/26/18 05:07 - Imaging Imaging: ITS Impressions Abdomen/Pelvis CT 08/24/18 16:52 CONCLUSION: 1. Findings consistent with partial small bowel obstruction with transition point likely at the distal ileum, in the right lower quadrant. Trace perihepatic ascites fluid. No evidence for bowel perforation or infarction at this time. 2. Additional ancillary findings, as above. Abdomen X-Ray 08/26/18 00:00 CONCLUSION: Interval decompression of small bowel loops with resolution of small bowel dilation. Small Bowel X-Ray 08/26/18 10:45 CONCLUSION: Normal small bowel series without obstruction. Assessment and Plan - Assessment (1) HIV (human immunodeficiency virus infection) Code(s): B20 - Human immunodeficiency virus [HIV] disease Status: Acute Plan: 58 year old male with abdominal pain; SBO -SBFT shows contrast through -+BM -Will advance to regular diet -If tolerates can DC home later today (2) History of laparoscopic appendectomy Code(s): Z90.49 - Acquired absence of other specified parts of digestive tract Status: Acute (3) History of lymphoma Code(s): Z85.79 - Personal history of other malignant neoplasms of lymphoid, hematopoietic and related tissues Status: Acute - Attending Attestation NOTE FOR SURGICAL ATTENDING, DR. PETE HUDSON I agree with above assessment and plan. The exam, history, and the medical decision-making described in the above note were completed with the assistance of the mid-level provider. I reviewed and agree with the findings presented. I attest that I had a [id number] encounter with the patient on the same day, and personally performed and documented my assessment and findings in the medical record. The following services were provided during this hospital visit: Chart data review, vital sign assessments/reviewing monitor data Review of consultations notes if present. Medication orders/review and/or management Ordering and/or reviewing lab tests Ordering and/or interpreting/reviewing x-rays and/or diagnostic studies Care of the patient and discussion of the patient with the care team Documentation time To help prompt me to consider important information that might be impacting today's encounter and assessment, Information from prior notes written by myself or my colleagues may have been "brought forward/copy and pasted" into today's note.
--- NOTE | 2018-08-27 11:26 | P.DS ---
DS: Providers Date of admission: 08/24/18 21:48 Primary care physician: UNKNOWN Consults: 08/24/18 21:48 Consult to General Surgery Routine Consulting Provider: David Ramsey Reason for Consultation: Partial SBO CONSULT FOR AM Notified:: Service Spoke with:: Mann Date Notified:: 08/24/18 Time Notified:: 22:03 Comments:: Change from Allan to Yemi per Kaylyn in the call center. 2018 0822. [place] Ordering Provider: STARR Anticipated date of discharge: 08/27/18 Brief History from admission: This is a 66-year-old male with a PMH of HIV (CD4 Unknown), h/o NHL s/p BM Transplant, Fibromyalgia and h/o SBO who presented to the ER w/ complaints of abdominal pain and constipation. States symptoms have been intermittent for the last 3 months, previously having normal, daily BMs, now intermittent and associated w/ increased straining, alternating w/ diarrhea. Last normal BM yesterday. Denies fever, chills. On arrival, BP 141/ 67, HR 80, O2 sat 92% on RA, Afebrile. CBC essentially unremarkable except for WBC 11.7. Chemistry unremarkable. UA negative. Urine Drug Screen positive for Opiates and Marijuana. CT Abdomen/Pelvis partial small bowel obstruction with transition point likely at distal ileum. NGT to be placed in ER. Patient update on day of discharge: Follow-up SBO, HIV, non-Hodgkin's lymphoma status post bone marrow transplant. Patient seen and examined sitting on the bed, stated he is already to go home. Patient denies any abdominal pain, nausea, or vomiting at this time. Patient stated he tolerated her his breakfast well without any nausea or vomiting. Patient stated he had a good bowel movement this morning as well as last night. Denies any abdominal distention or discomfort. Denies any fever or chills. Patient ambulating in the room without any problem. DS: Diagnosis Discharge Diagnosis (1) HIV (human immunodeficiency virus infection): Status: Acute (2) History of laparoscopic appendectomy: Status: Acute (3) History of lymphoma: Status: Acute (4) Partial obstruction of small intestine: Status: Acute DS: Summary This is a 66-year-old male with a PMH of HIV (CD4 Unknown), h/o NHL s/p BM Transplant, Fibromyalgia and h/o SBO who presented to the ER w/ complaints of abdominal pain and constipation. Partial SBO reports h/o SBO in the past, last BM on -CT Abd/Pelvis : w/ partial SBO transition point distal ileum -Continue IV fluid -PRN pain medication, with bowel regimen morphine prn -General surgery consulted, Appreciate recom: SBFT today, will DC NG if contrast gets to colon, if not may need laparoscopy monday or monday. -Continue stool stool softeners and laxative. -Give Dulcolax suppository today -Monitor electrolytes, BMP and CBC -Small bowel series today -KUB 08/26/2018: Interval decompression of small bowel loops with resolution of small bowel dilation. - good BM today and last nighy -tolerating regular PO diet well HIV - CD4 unknown -reports last viral load 3 months ago was "low" -resume home medications once obstruction resolves and able to take PO. Non-Hodgkin lymphoma Status post bone marrow Transplant -In remission times 6 years -Follow-up with oncology as an outpatient DVT Prophylaxis: SCD/teds Time Spent with Patient Total time spent providing and/or coordinating discharge services: Quality: VTE Deep Vein Thrombosis/Pulmonary Embolism Present on Admission: No Exam Narrative Exam Narrative: GENERAL: Well-developed, well-nourished, pleasant middle-aged male, sitting in no acute distress. SKIN: Focused skin assessment warm and dry. HEENT: P No scleral icterus or conjunctival pallor. No lid lag or facial droop. CARDIOVASCULAR: Regular rate and rhythm. No obvious murmurs to auscultation. No chest tenderness to palpation. RESPIRATORY: No rhonchi or wheezing. Clear to auscultation. Breath sounds equal bilaterally. GASTROINTESTINAL: Abdomen soft, no tenderness, nondistended. BS normal. MUSCULOSKELETAL: Extremities without clubbing, cyanosis, or edema. No obvious deformities. NEUROLOGICAL: Awake, alert and oriented x4. No focal neurologic deficits. Generalized weakness, moving all 4 extremities. Speech normal . PSYCHIATRIC: Appropriate mood and affect. Insight and judgment normal. Results Impressions ITS Impressions Abdomen/Pelvis CT 08/24/18 16:52 CONCLUSION: 1. Findings consistent with partial small bowel obstruction with transition point likely at the distal ileum, in the right lower quadrant. Trace perihepatic ascites fluid. No evidence for bowel perforation or infarction at this time. 2. Additional ancillary findings, as above. Abdomen X-Ray 08/26/18 00:00 CONCLUSION: Interval decompression of small bowel loops with resolution of small bowel dilation. Small Bowel X-Ray 08/26/18 10:45 CONCLUSION: Normal small bowel series without obstruction. Discharge Plan Discharge Disposition Patient Disposition: Discharge Home Discharge Order Discharge Orders: Discharge Order (Routine); Ordered 08/27/18 Ordered By: Mignon Kong Torres General Surgery Clear for Discharge (Routine); Ordered 08/27/18 Ordered By: Mignon Kong Torres Discharge Details Anticipated Discharge Date: 08/27/18 Physicians Team Primary Care Provider: UNKNOWN, Attending Provider: Ying Valdez Other Providers: David Ramsey Rxs /Orders / Referrals /Forms Prescriptions: No Action quetiapine 100 mg Tablet 100 mg PO TID RF: 0 acyclovir 200 mg Capsule 400 mg PO Q4H RF: 0 zolpidem [Ambien] 5 mg Tablet PO HS RF: 0 lamotrigine 100 mg Tablet PO BID RF: 0 dolutegravir-rilpivirine [Juluca] 50-25 mg Tablet 1 tab PO DAILY RF: 0 tamsulosin 0.4 mg 0.4 mg PO DAILY RF: 0 gabapentin 800 mg Tablet 800 mg PO TID RF: 0 Referrals: UNKNOWN, [Primary Care Provider] - See Instructions Discharge Instructions Patient Printed Instructions: Laxative, Stool Softeners (By mouth), Abdominal Pain (ED), Bowel Obstruction (GEN), Ileus (GEN), Fall Prevention (DC), Nasogastric Tube (GEN) Additional Instructions: PRESCRIPTIONS PROVIDED AT TIME OF DISCHARGE. RETURN TO ED FOR INCREASED PAIN, NAUSEA/VOMITING, CONSTIPATION, LIQUID STOOL, OR BEING UNABLE TO TOLERATE DIET. FOLLOW UP WITH YOUR PRIMARY CARE PHYSICIAN WITHIN 1 WEEK. PLEASE CALL TO SCHEDULE. Post Discharge Care Plan Care Plan Goals: Your Health Problems: PARTIAL SMALL BOWEL OBSTRUCTION Goals to Promote Your Health: * To prevent worsening of your condition * To maintain your health at the optimal level Directions to Meet Your Goals: * Take your medications as prescribed * Follow your dietary instruction * Follow activity as directed * Keep your appointments as scheduled * Take your immunizations and boosters as scheduled * If your symptoms worsen call your PCP * If no PCP go to Urgent Care or Emergency Room Smoking is dangerous to your health. Avoid second hand smoke. You may reach the 24-hour crisis hotline for domestic abuse at . Status ED Status: Left Department
== END 2018-08-27 12:33 | disposition home or self-care (01) | DRG 389 ==
LOC: NEDA 16:45 → NEPE 16:45 → N06 23:39
PROVIDERS: ADMIT Family Medicine; ATTEND Family Medicine
DX: Z92.21 Personal history of antineoplastic chemotherapy; Z94.81 Bone marrow transplant status; M79.7 Fibromyalgia; B20 Human immunodeficiency virus [HIV] disease; F12.10 Cannabis abuse, uncomplicated; K56.600 Partial intestinal obstruction, unspecified as to cause; Z85.72 Personal history of non-Hodgkin lymphomas; Z87.891 Personal history of nicotine dependence
CPT/HCPCS: 74000; 74018; 74177; 74250; 80048; 80053; 80307; 81001; 83605; 83690; 83735; 84145; 85025; J1170; J2270; J2405; J7030; Q9963; Q9967